=== PATIENT | female | born 1975 | race Caucasian/White ===

== ENCOUNTER 2018-07-06 11:18 | Emergency (ER) | payer SELFPAY ==
[~2018-07-06] VITALS: Ht 170.2 cm; Wt 65.8 kg
[2018-07-06 11:35] VITALS: BP 126/59
[2018-07-06] MEDS ORDERED: SULF1TAB24 PO (11:45)
[2018-07-06] MEDS ORDERED: MUPI22OI2 TP (11:45)
--- NOTE | 2018-07-06 11:46 | PHYS DOC ---
Adult General Chief Complaint Chief Complaint: ABSCESS HPI HPI Patient is a 42 year old female who presents with a sore to the inside of her right naris. 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 She noticed the painful lesion approximately 2 days ago. She denies fever, nausea or vomiting. Review of Systems Review of Systems Constitutional: Denies fever or chills [] Eyes: Denies change in visual acuity, redness, or eye pain [] HENT: See history of present illness Respiratory: Denies cough or shortness of breath [] Cardiovascular: No additional information not addressed in HPI [] GI: Denies abdominal pain, nausea, vomiting, bloody stools or diarrhea [] : Denies dysuria or hematuria [] Musculoskeletal: Denies back pain or joint pain [] Integument: Denies rash or skin lesions [] Neurologic: Denies headache, focal weakness or sensory changes [] Endocrine: Denies polyuria or polydipsia [] All other systems were reviewed and found to be within normal limits, except as documented in this note. Physical Exam Physical Exam Constitutional: Well developed, well nourished, no acute distress, non-toxic appearance. [] HENT: Normocephalic, atraumatic, bilateral external ears normal, oropharynx moist, no oral exudates, right nare has a small erythematous lesion with induration but no sign of fluctuance or self drainage Eyes: PERRLA, EOMI, conjunctiva normal, no discharge. [] Neck: Normal range of motion, no tenderness, supple, no stridor. [] Cardiovascular:Heart rate regular rhythm, no murmur [] Lungs & Thorax: Bilateral breath sounds clear to auscultation [] Neurologic: Alert and oriented X 3, normal motor function, normal sensory function, no focal deficits noted. [] Psychologic: Affect normal, judgement normal, mood normal. [] Current Patient Data Vital Signs Vital Signs Date Time Temp Pulse Resp B/P (MAP) Pulse Ox O2 Delivery O2 Flow Rate FiO2 07/06/18 11:35 98.6 104 18 126/59 (81) 100 Room Air 98.6 EKG EKG [] Radiology/Procedures Radiology/Procedures [] Course & Med Decision Making Course & Med Decision Making Pertinent Labs and Imaging studies reviewed. (See chart for details) [] Dragon Disclaimer Dragon Disclaimer This electronic medical record was generated, in whole or in part, using a voice recognition dictation system. Departure Departure Impression: Primary Impression: Skin infection Disposition: 01 HOME, SELF-CARE Condition: STABLE Patient Instructions: Skin Infections Additional Instructions: Take the antibiotic as directed. Use the mupirocin ointment as directed. You may take ibuprofen or Tylenol for pain. Follow-up with your primary care provider in 4 days if not improving or return to the emergency department if worsening. Scripts Mupirocin (MUPIROCIN OINTMENT) 22 Gm Oint...g. 1 JONES TP TID for WOUND CARE, #1 TUBE Prov: LATISHA TAVAREZ APRN 07/06/18 Sulfamethoxazole/Trimethoprim (BACTRIM DS TABLET) 1 Each Tablet 1 TAB PO BID for infection, #20 TAB Prov: LATISHA TAVAREZ APRN 07/06/18 LATISHA TAVAREZ APRN Jul 06, 2018 11:46
== END 2018-07-06 12:17 | disposition home or self-care (01) ==
LOC: ER 11:18
DX: L53.8 Other specified erythematous conditions (principal)
CPT/HCPCS: 99283